=== PATIENT | male | born 1985 | race Caucasian/White ===

== ENCOUNTER 2016-11-29 06:50 | Day surgery (SDC) | payer OTHER ==
[2016-11-25 11:33] VITALS: BMI 26.9
[2016-11-29] MEDS ORDERED: methylPREDNISolone ACET (DEPO) 40 MG/1 ML VIAL ONE (07:09)
[2016-11-29] MEDS ORDERED: THROMBIN (BOVINE) 5,000 UNIT VIAL TP ONE ×2 (07:09→09:37)
[2016-11-29] MEDS ORDERED: LIDOCAINE 1%-EPI 1:100,000 30 ML MDV IJ ONE (07:09)
[2016-11-29] MEDS ORDERED: BUPIVACAINE HCL/PF 2.5 MG/ML - 30 ML VIAL IJ ONE (07:09)
[2016-11-29] MEDS ORDERED: GUM MASTIC/STORAX/MSAL/ALCOHOL 1 DRP DROPSBTL MC ONE (07:10)
[2016-11-29 07:18] VITALS: TEMP 98.6
[2016-11-29] MEDS ORDERED: oxyCODONE HCL 10 MG SUSTAINED ACTING TABLET ONE (07:23)
[2016-11-29] MEDS ORDERED: oxyCODONE HCL 10 MG SUSTAINED ACTING TABLET PO STA (07:25)
--- NOTE | 2016-11-29 07:28 | HP ---
History & Physical Update - History History: No Change - Physical Physical: No Change - Assessment Assessment: No Change - Plan Plan: No Change (31 yo M c/o low back pain, radiculopathy in left leg presents for a planned lumbar laminectomy L5-S1 with Dr. Villafana on 11/29/16. There are no changes from the H&P performed on 11/23/16 present in the paper chart.)
[2016-11-29] MEDS ORDERED: SUCCINYLCHOLINE CHLORIDE 200 MG/10 ML VIAL ONE (07:43)
[2016-11-29] MEDS ORDERED: MIDAZOLAM HCL 2 MG/2 ML SINGLE DOSE VIAL ONE ×2 (07:59→08:00)
[2016-11-29] MEDS ORDERED: BUPIVACAINE HCL/PF 0.5% (5MG/ML) 10 ML VIAL ONE (08:24)
[2016-11-29] MEDS ORDERED: LIDOCAINE 1%/EPI 1:100000 (50 ML MULTI DOSE VIAL) INF ONE (08:50)
[2016-11-29] MEDS ORDERED: ONDANSETRON 4 MG/2 ML VIAL ONE (09:35)
[2016-11-29] MEDS ORDERED: methylPREDNISolone ACET (DEPO) 40 MG/1 ML VIAL IM ONE (09:37)
[2016-11-29] MEDS ORDERED: BUPIVACAINE HCL/PF 0.25% (2.5MG/ML) 10 ML VIAL IJ ONE (09:39)
--- NOTE | 2016-11-29 10:08 | OP ---
Operative Note - Note: Operative Date: 11/29/16 Pre-Operative Diagnosis: spinal stenosis L5-S1 Operation: lumbar laminbectomy L5-S1 Post-Operative Diagnosis: Same as Pre-op Surgeon: Santana Villafana Air Valve Mechanic: Ruby Estrella Anesthesia: Spinal Estimated Blood Loss (mls): 20 Fluid Volume Replaced (mls): 600 Operative Report Dictated: Yes
--- NOTE | 2016-11-29 10:11 | SURG ---
Surgery Counseling Director Note Counseling Director: Ruby Estrella PA-C Date of Service: 11/29/16 Diagnosis: spinal stenosis L5-S1 Procedure: lumbar laminectomy L5-S1 I was present for the entirety of the operative procedure. For further detail, please refer to operative report. Visit type - Case Type Case Type: Scheduled Admission - New patient This patient is new to me today: Yes Date on this admission: 11/29/16
[2016-11-29] MEDS ORDERED: oxyCODONE HCL 5 MG TABLET ONE (11:54)
[2016-11-29 13:00] VITALS: BP 112/69; PULSE 67
[2016-11-29] MEDS ORDERED: LACTATED RINGERS SOLUTION 1,000 ML IV SCH (13:15)
[2016-11-29] MEDS ORDERED: ONDANSETRON 4 MG/2 ML VIAL IVPUSH PRN (15:44)
[2016-11-29] MEDS ORDERED: oxyCODONE HCL 5 MG TABLET PO PRN (15:44)
[2016-11-29] MEDS ORDERED: PROMETHAZINE HCL 25 MG/1 ML VIAL IVPUSH PRN (15:44)
--- NOTE | 2016-11-29 20:02 | OP ---
DATE OF OPERATION: 11/29/2016 PREOPERATIVE DIAGNOSIS: Spinal stenosis L5-S1. POSTOPERATIVE DIAGNOSIS: Spinal stenosis L5-S1. PROCEDURE PERFORMED: Laminectomy L5-S1. SURGEON: Santana Villafana M.D. BURNER TENDER: Maria M Kaiser ESTIMATED BLOOD LOSS: 50 mL INTRAVENOUS FLUIDS: Per anesthesia. ANESTHESIA: Spinal. COMPLICATIONS: There were none. DISPOSITION: Patient brought to the PACU in stable condition. INDICATION FOR SURGERY: The patient is a 31-year-old gentleman who has been suffering from pain from his back down his leg. X-rays and MRI were completed, which noted that he had spinal stenosis at L5-S1. He had gone through an exhaustive course of treatment for this which included medications, physical therapy, as well as injections. Unfortunately, his pain continued to persist in spite of all this. At this point, risks, benefits, and alternatives were discussed and the patient consented to surgery. OPERATIVE NOTE: Patient is brought to the operating room by the anesthesia staff. After appropriate patient identification is performed, spinal anesthesia was given. He was placed prone onto the Mark frame with all areas of bony prominences well padded at this time. Two needles were placed into his back to ivan off the L5- S1 segment, and x-ray is taken to confirm this is correct. [place] were removed, and 10 mL of lidocaine with epinephrine was injected into his back at this time. His back was prepped and draped in a sterile manner. At this point timeout was completed. An incision was made from the top of L5 down to the bottom of S1. Dissection was carried down to the fascia. Fascia was then split open at this time, and appropriate retractors were then placed in. Then a spinal needle was placed onto the L5 lamina. An x-ray was taken to confirm this was correct. The needle was removed, and microscope was brought in. At this point, the interspinous ligament at L5-S1 was removed. A portion of the L5-S1 lamina was removed. The segment identified, it was removed. The nerve root was mobilized medially. A disc herniation was noted, it was removed at this time. A portion of the inferior-superior facets were removed such that by the end of the procedure, the nerve root appeared to be well decompressed. All bleeding was well controlled at this time. Steroids were placed over the nerve root, Floseal was placed over that. The fascia was closed with a number 1 Vicryl suture. The subcutaneous tissue was closed with 2-0 Vicryl suture. Skin was closed with 3-0 Monocryl suture. Dermabond was applied. Steri-Strips were applied. Sterile dressing was applied. Patient was placed supine on OR bed, and brought to the PACU in stable condition. Tai MAST/[id number] MTDD
--- NOTE | 2016-12-01 13:10 | PATH ---
Surgical Pathology Report Patient Name: [facility]. Rec. #: [id number] /Age/Gender: 1985 (Age: 31) / M Account: [id number] Location: [facility] AMB[facility] Taken: 11/29/2016 Received: 11/29/2016 Reported: 12/01/2016 Physicians: Santana Villafana M.D. Specimen(s) Received L5-S1 DISC Clinical History Spinal stenosis Final Diagnosis INTERVERTEBRAL DISC, L5-S1, PARTIAL EXCISION: PORTIONS OF INTERVERTEBRAL DISC. Electronically Signed Rajeev Carcamo M.D. Gross Description Received in formalin, labeled "L5-S1 disc," is a 2.4 x 2.0 x 0.5 cm diamond, irregular portion of fibrocartilaginous tissue. The specimen is sectioned and entirely submitted in one cassette. 11/30/201611/30/2016
== END 2016-11-29 13:00 | disposition home or self-care (01) ==
LOC: FASU 06:50
PROVIDERS: ATTEND Orthopaedic Surgery Orthopaedic Surgery of the Spine
PROC: 01NB0ZZ Release Lumbar Nerve, Open Approach (ICD-10-PCS; principal; 2016-11-29 08:15)
DX: M48.07 Spinal stenosis, lumbosacral region (principal)
CPT/HCPCS: 72100-TC; 76000-TC; 88304-TC; 94760

== ENCOUNTER 2024-01-09 19:47 | Observation (INO) | payer OTHER ==
[2024-01-09] MEDS ORDERED: ACETAMINOPHEN INJECTION 100 ML IVPB ONE (20:22)
[2024-01-09] MEDS: ACETAMINOPHEN 1000 MG/100 ML BAG IVPB ONE (20:42)
[2024-01-09 20:48] LABS: HEMATOCRIT 41.7 % (35.4-49); HEMOGLOBIN 14.1 GM/dL (11.7-16.9); MCHC 33.9 g/dl (32.0-35.9); MEAN CELL VOLUME 85.7 fl (80-96); MEAN PLT VOLUME 7.8 fl (7.5-11.1); PLATELET COUNT 402 10^3/uL (134-434); RBC 4.86 M/mm3 (4.00-5.60); RDW 13.7 % (11.9-15.9); WHITE BLOOD COUNT 23.3 K/mm3 (4.0-10.0)
[2024-01-09 20:55] LABS: INR 1.13 (0.83-1.09); PROTHROMBIN TIME (PATIENT) 13.1 SEC (9.7-13.0)
[2024-01-09 20:57] LABS: ACTIVATED PTT 26.3 SECONDS (25.2-36.5)
[2024-01-09 21:09] LABS: POTASSIUM 3.5 mmol/L (3.5-5.1)
[2024-01-09 21:10] LABS: CALCIUM 9.3 mg/dL (8.5-10.1)
[2024-01-09 21:11] LABS: ALBUMIN 4.2 g/dl (3.4-5.0); BLOOD UREA NITROGEN 10.2 mg/dL (7-18)
[2024-01-09 21:14] LABS: CREATININE 1.2 mg/dL (0.55-1.3)
[2024-01-09 21:16] LABS: BILIRUBIN,TOTAL 0.8 mg/dL (0.2-1); TOT PROT 8.3 g/dl (6.4-8.2)
[2024-01-09] MEDS ORDERED: CEFTRIAXONE 1 GM/50 ML BAG ONE (21:42)
[2024-01-09] MEDS: CEFTRIAXONE 1,000 MG in DEXTROSE 5%-WATER - 50 ML IVPB ONE (22:00)
[2024-01-09 22:31] LABS: OVALOCYTE 1+
[2024-01-09 22:32] LABS: PLATELET ESTIMATE ADEQUATE
[2024-01-10] MEDS ORDERED: AMPICILLIN NA/SULBACTAM NA 3 GM/100 ML BAG IVPB ONE (01:34)
[2024-01-10] MEDS: AMPICILLIN NA/SULBACTAM NA 3 GM in DEXTROSE 5%-WATER 100 ML IVPB ONE (01:39)
[2024-01-10 03:28] VITALS: BMI 33.4
[2024-01-10 06:14] VITALS: RESP 18
[2024-01-10 09:03] LABS: BASO % 0.4 % (0-2.0); EOS % 2.6 % (0-4.5); HEMATOCRIT 40.1 % (35.4-49); HEMOGLOBIN 13.5 GM/dL (11.7-16.9); LYMPH % 13.7 % (8-40); MCHC 33.5 g/dl (32.0-35.9); MEAN CELL VOLUME 86.4 fl (80-96); MONO % 9.3 % (3.8-10.2); PLATELET COUNT 377 10^3/uL (134-434); RBC 4.64 M/mm3 (4.00-5.60); RDW 13.6 % (11.9-15.9); WHITE BLOOD COUNT 13.9 K/mm3 (4.0-10.0)
[2024-01-10 09:23] LABS: POTASSIUM 3.7 mmol/L (3.5-5.1)
[2024-01-10 09:25] LABS: ALBUMIN 3.8 g/dl (3.4-5.0); CALCIUM 9.2 mg/dL (8.5-10.1)
[2024-01-10 09:28] LABS: CREATININE 0.9 mg/dL (0.55-1.3)
[2024-01-10 09:30] LABS: TOT PROT 7.5 g/dl (6.4-8.2)
[2024-01-10 10:55] VITALS: BP 131/76
[2024-01-10 11:02] VITALS: PULSE 83; TEMP 97.5
== END 2024-01-10 12:35 | disposition home or self-care (01) ==
LOC: JER 19:47 → JERBED 22:44 → J8W 01-10 01:57
PROVIDERS: ADMIT Internal Medicine; ATTEND Internal Medicine
PROC: 3E033NZ Introduction of Analgesics, Hypnotics, Sedatives into Peripheral Vein, Percutaneous Approach (ICD-10-PCS; principal; 2024-01-09)
PROC: 3E03329 Introduction of Other Anti-infective into Peripheral Vein, Percutaneous Approach (ICD-10-PCS; 2024-01-09)
DX: J69.0 Pneumonitis due to inhalation of food and vomit (principal); D72.829 Elevated white blood cell count, unspecified; R07.9 Chest pain, unspecified; R06.02 Shortness of breath; R00.2 Palpitations; Z98.890 Other specified postprocedural states
CPT/HCPCS: 0241U-QW; 36415; 71046-TC-FY; 74018-TC-FY; 80053; 84484; 85025; 85610; 85730; 86850; 86900; 86901; 87040; 93005; 93010; 99285-25; G0378; J0131